=== PATIENT | male | born 1995 | race Caucasian/White ===

== ENCOUNTER 2016-11-27 08:02 | Emergency (ER) | payer SELFPAY ==
[2016-11-27 08:09] VITALS: BP 137/87
[2016-11-27] MEDS ORDERED: IBUPROFEN 800 MG TABLET PO ONE (08:11)
--- NOTE | 2016-11-27 08:13 | ER Document Report ---
ED Medical Screen (RME) - General Chief Complaint: Knee Injury Stated Complaint: LEFT KNEE INJURY Time seen by provider: 08:10 Mode of Arrival: Wheelchair Information source: Patient Notes: 21 yo male presents to ed for injury to left knee when fell of off a long board and hit the concrete with his knee. TRAVEL OUTSIDE OF THE [place] IN LAST 30 DAYS: No - HPI Onset: Yesterday Onset/Duration: Sudden Quality of pain: Sharp, Throbbing Severity: Severe Pain Level: 5 - Related Data Allergies/Adverse Reactions: gabapentin [From Neurontin] Allergy (Verified 11/27/16 08:06) Past Medical History Pulmonary Medical History: Denies: Hx Asthma Neurological Medical History: Denies: Hx Migraine Endocrine Medical History: Denies: Hx Diabetes Mellitus Type 1, Hx Diabetes Mellitus Type 2 Renal/ Medical History: Denies: Hx Peritoneal Dialysis Psychiatric Medical History: Denies: Hx Attention Deficit Hyperactivity Disorder - Immunizations Hx Diphtheria, Pertussis, Tetanus Vaccination: Yes Physical Exam - Vital signs Vitals: Temp Pulse Resp BP Pulse Ox 98.6 F 105 H 20 137/87 H 100 11/27/16 08:07 11/27/16 08:07 11/27/16 08:07 11/27/16 08:07 11/27/16 08:07 Course - Vital Signs Vital signs: Temp Pulse Resp BP Pulse Ox 98.6 F 105 H 20 137/87 H 100 11/27/16 08:07 11/27/16 08:07 11/27/16 08:07 11/27/16 08:07 11/27/16 08:07
[2016-11-27] MEDS ORDERED: OXYCODONE-ACETAMINOPHEN 5-325 MG TABLET PO ONE (09:16)
[2016-11-27] MEDS ORDERED: DIPH/PERTUSS(ACELL)/TETANUS VAC/PF 0.5 ML SYR (>=10YO) IM ONE (09:16)
--- NOTE | 2016-11-27 09:21 | ER Document Report ---
ED Extremity Problem, Lower - General Chief Complaint: Knee Injury Stated Complaint: LEFT KNEE INJURY Time seen by provider: 09:18 Mode of Arrival: Wheelchair Information source: Patient TRAVEL OUTSIDE OF THE [place] IN LAST 30 DAYS: No - HPI Patient complains to provider of: Injury, Pain Location: Knee Occurred: Yesterday Where: Outdoors Onset/Duration: Sudden Quality of pain: Achy Severity: Moderate Pain Level: 3 Context: Fell Recent injury: Yes Associated symptoms: Painful ambulation Exacerbated by: Movement Relieved by: Nothing Notes: Patient is a 21-year-old male who presents to the emergency room complaining of injury to his left knee that occurred yesterday evening, states he was riding a long board when he fell off of it onto pavement, causing a deep abrasion over his knee, patient states it is painful to walk on today, last tetanus shot is unknown - Related Data Allergies/Adverse Reactions: gabapentin [From Neurontin] Allergy (Verified 11/27/16 08:06) Past Medical History - General Information source: Patient - Social History Smoking Status: Current Every Day Smoker Chew tobacco use (# tins/day): No Frequency of alcohol use: None Drug Abuse: None Family History: Reviewed & Not Pertinent Patient has suicidal ideation: No Patient has homicidal ideation: No Pulmonary Medical History: Denies: Hx Asthma Neurological Medical History: Denies: Hx Migraine Endocrine Medical History: Denies: Hx Diabetes Mellitus Type 1, Hx Diabetes Mellitus Type 2 Renal/ Medical History: Denies: Hx Peritoneal Dialysis Psychiatric Medical History: Denies: Hx Attention Deficit Hyperactivity Disorder Surgical Hx: Negative - Immunizations Hx Diphtheria, Pertussis, Tetanus Vaccination: Yes Review of Systems - Review of Systems Constitutional: No symptoms reported EENT: No symptoms reported Cardiovascular: No symptoms reported Respiratory: No symptoms reported Gastrointestinal: No symptoms reported Genitourinary: No symptoms reported Male Genitourinary: No symptoms reported Musculoskeletal: See HPI Skin: See HPI Hematologic/Lymphatic: No symptoms reported Neurological/Psychological: No symptoms reported -: Yes All other systems reviewed and negative Physical Exam - Vital signs Vitals: Temp Pulse Resp BP Pulse Ox 98.6 F 105 H 20 137/87 H 100 11/27/16 08:07 11/27/16 08:07 11/27/16 08:07 11/27/16 08:07 11/27/16 08:07 - General Notes: - General General appearance: Appears well, Alert In distress: None - HEENT Head: Normocephalic, Atraumatic Eyes: Normal Conjunctiva: Normal Extraocular movements intact: Yes Eyelashes: Normal Pupils: PERRL - Respiratory Respiratory status: No respiratory distress - Cardiovascular Rhythm: Regular - Abdominal Inspection: Normal - Back Back: Normal - Extremities General upper extremity: Normal inspection General lower extremity: Left lower extremity, and knee with 3 cm deep abrasion , with surrounding superficial abrasions, mild erythema and tenderness, painful range of motion as well as palpation, distal sensation and motor is intact - Neurological Neuro grossly intact: Yes Orientation: AAOx4 Joycelyn Coma Scale Eye Opening: Spontaneous Joycelyn Coma Scale Verbal: Oriented [place] Coma Scale Motor: Obeys Commands [place] Coma Scale Total: 15 - Psychological Associated symptoms: Normal affect, Normal mood - Skin Skin Temperature: Warm Skin Moisture: Dry Skin Color: Normal Course - Re-evaluation Re-evalutation: 11/27/16 09:19 Imaging findings discussed with patient which are unremarkable, wound care was provided as well as pain medication, crutches and instructions for follow-up, patient advised to return if symptoms worsen, patient acknowledges understanding and agreement with this plan - Vital Signs Vital signs: Temp Pulse Resp BP Pulse Ox 98.6 F 105 H 20 137/87 H 100 11/27/16 08:07 11/27/16 08:07 11/27/16 08:07 11/27/16 08:07 11/27/16 08:07 - Diagnostic Test Radiology reviewed: Image reviewed, Reports reviewed Discharge - Discharge Clinical Impression: Abrasion of left knee Qualifiers: Encounter type: initial encounter Qualified Code(s): S80.212A - Abrasion, left knee, initial encounter Knee injury Qualifiers: Encounter type: initial encounter Laterality: left Qualified Code(s): S89.92XA - Unspecified injury of left lower leg, initial encounter Condition: Stable Disposition: HOME, SELF-CARE Instructions: Use of Crutches ([facility]), Ice & Elevation ([facility]), Suspected Internal Knee Injury ([facility]), Oral Narcotic Medication ([facility]), Sprained Knee ([facility]) Additional Instructions: Follow up with your primary care provider and an orthopedic surgeon in one to 2 days. Return to the emergency room immediately if symptoms worsen or any additional concerns. Ice and elevate the affected extremity. Limit weightbearing. Cleanse wound twice daily with warm water and soap. Apply antibiotic ointment and clean dressing. Prescriptions: Cephalexin Monohydrate [Keflex 500 mg Capsule] 500 mg PO BID #20 capsule Oxycodone HCl/Acetaminophen [Percocet 5-325 mg Tablet] 1 - 2 tab PO ASDIR PRN # 30 tablet PRN Reason: Forms: Return to Work Referrals: KASSI PERKINS MD [ACTIVE STAFF] - Follow up as needed
== END 2016-11-27 09:40 | disposition home or self-care (01) ==
LOC: ER 08:02
DX: S80.212A Abrasion, left knee, initial encounter (principal); V00.131A Fall from skateboard, initial encounter; Y93.51 Activity, roller skating (inline) and skateboarding; F17.200 Nicotine dependence, unspecified, uncomplicated; Z88.6 Allergy status to analgesic agent
CPT/HCPCS: 90471; 90715; 99283

== ENCOUNTER 2017-12-09 23:41 | Emergency (ER) | payer BC ==
[2017-12-10] MEDS ORDERED: CYCLOBENZAPRINE HCL 10 MG TABLET PO ONE (00:22)
[2017-12-10] MEDS ORDERED: IBUPROFEN 800 MG TABLET PO ONE (00:22)
--- NOTE | 2017-12-10 00:29 | ER Document Report ---
ED Head/Face/Scalp Injury - General Chief Complaint: Head Injury without LOC Stated Complaint: HEAD INJURY Time Seen by Provider: 12/10/17 00:09 Notes: Patient is a 22-year-old male who comes in after hitting his head on the ground while skateboarding yesterday. Patient is also complaining of some right greater than left neck pain but states he also has pain in the middle and he moves his neck. Patient is not taking anything at home for pain or applied ice. Denies medical problems except for a problem with his leg in the past. He is allergic to gabapentin. States that he has had his tonsils out. No other injuries. Thinks that his tetanus is up-to-date. TRAVEL OUTSIDE OF THE [place] IN LAST 30 DAYS: No - HPI Patient complains to provider of: Injury Injury to: Head, Neck Where: Outdoors Context: Fell Loss consciousness: Unsure - Related Data Allergies/Adverse Reactions: gabapentin [From Neurontin] Allergy (Verified 11/27/16 08:06) Past Medical History - General Information source: Patient - Social History Smoking Status: Unknown if Ever Smoked Smoking Education Provided: No Frequency of alcohol use: None Drug Abuse: None Family History: Reviewed & Not Pertinent Patient has suicidal ideation: No Patient has homicidal ideation: No Pulmonary Medical History: Denies: Hx Asthma Neurological Medical History: Denies: Hx Migraine Endocrine Medical History: Denies: Hx Diabetes Mellitus Type 1, Hx Diabetes Mellitus Type 2 Renal/ Medical History: Denies: Hx Peritoneal Dialysis Psychiatric Medical History: Denies: Hx Attention Deficit Hyperactivity Disorder Traumatic Medical History: Reports: Other - leg - Immunizations Hx Diphtheria, Pertussis, Tetanus Vaccination: Yes Review of Systems - Review of Systems Constitutional: No symptoms reported EENT: See HPI Cardiovascular: No symptoms reported Respiratory: No symptoms reported Gastrointestinal: No symptoms reported Genitourinary: No symptoms reported Male Genitourinary: No symptoms reported Musculoskeletal: See HPI Skin: No symptoms reported Hematologic/Lymphatic: No symptoms reported Neurological/Psychological: No symptoms reported Physical Exam - Vital signs Vitals: Temp Pulse Resp BP Pulse Ox 98.7 F 96 18 121/83 99 12/09/17 23:59 12/09/17 23:59 12/09/17 23:59 12/09/17 23:59 12/09/17 23:59 Interpretation: Normal - General General appearance: Appears well, Alert - HEENT Head: Normocephalic, Other - Tenderness to palpation over his right parietal lobe Eyes: Normal Pupils: PERRL Pharynx: Normal Neck: Other - Paraspinal greater than midline cervical tenderness to palpation from C2-C7 - Respiratory Respiratory status: No respiratory distress Chest status: Nontender Breath sounds: Normal Chest palpation: Normal - Cardiovascular Rhythm: Regular Heart sounds: Normal auscultation Murmur: No - Abdominal Inspection: Normal Distension: No distension Bowel sounds: Normal Tenderness: Nontender Organomegaly: No organomegaly - Back Back: Normal, Nontender - Extremities General upper extremity: Normal inspection, Nontender, Normal color, Normal ROM , Normal temperature General lower extremity: Normal inspection, Nontender, Normal color, Normal ROM , Normal temperature, Normal weight bearing. No: Joselo's sign - Neurological Neuro grossly intact: Yes Cognition: Normal Orientation: AAOx4 Joycelyn Coma Scale Eye Opening: Spontaneous [place] Coma Scale Verbal: Oriented [place] Coma Scale Motor: Obeys Commands Joycelyn Coma Scale Total: 15 Speech: Normal Motor strength normal: LUE, RUE, LLE, RLE Sensory: Normal - Psychological Associated symptoms: Normal affect, Normal mood - Skin Skin Temperature: Warm Skin Moisture: Dry Skin Color: Normal Course - Re-evaluation Re-evalutation: 12/10/17 02:32 Patient with cervical strain after hitting his head. No acute findings on CT head or on cervical spine x-ray. Patient will be discharged home with naproxen and Flexeril. He is to ice everything that is sore. Patient is agreeable to this plan. Follow-up with PMD and return if any worsening or concerning symptoms. Stable for discharge. - Vital Signs Vital signs: Temp Pulse Resp BP Pulse Ox 98.1 F 68 16 110/61 98 12/10/17 02:08 12/10/17 02:08 12/10/17 02:08 12/10/17 02:08 12/10/17 02:08 - Diagnostic Test Radiology reviewed: Reports reviewed Discharge - Discharge Clinical Impression: Closed head injury Qualifiers: Encounter type: initial encounter Qualified Code(s): S09.90XA - Unspecified injury of head, initial encounter Cervical strain, acute Qualifiers: Encounter type: sequela Qualified Code(s): S16.1XXS - Strain of muscle, fascia and tendon at neck level, sequela Condition: Stable Disposition: HOME, SELF-CARE Instructions: Head Injury Precautions ([facility]), Ice Packs ([facility]), Neck Injury ( Cervical Strain) ([facility]) Prescriptions: Cyclobenzaprine HCl [Flexeril 10 Mg Tablet] 10 mg PO BIDP PRN #20 tablet PRN Reason: Naproxen [Naprosyn 250 mg Tablet] 250 mg PO DAILY PRN #14 tablet PRN Reason: Forms: Return to Work
--- NOTE | 2017-12-10 01:35 | RADIOLOGY REPORT (SQ) ---
EXAM DESCRIPTION: CT HEAD WITHOUT CLINICAL HISTORY: fall, headache, LOC COMPARISON: None available TECHNIQUE: Axial CT of the head obtained from the skull apex to the skull base without contrast. FINDINGS: No acute intracranial hemorrhage identified. No mass, mass effect, shift of the midline, abnormal extra-axial fluid collection or CT evidence of acute ischemic change identified. The ventricular system is unremarkable. No acute abnormalities of the supratentorial white matter, basal ganglia, cerebellum, or brainstem. The visualized paranasal sinuses and the mastoids are clear. No skull fracture identified. Visualized orbits and globes are unremarkable. DLP:1070.38 mGy-cm IMPRESSION: 1. No acute intracranial abnormality identified. This exam was performed according to our departmental dose-optimization program, which includes automated exposure control, adjustment of the mA and/or kV according to patient size and/or use of iterative reconstruction technique.
--- NOTE | 2017-12-10 01:55 | RADIOLOGY REPORT (SQ) ---
EXAM DESCRIPTION: CERV SP 4 OR 5 VIEWS CLINICAL HISTORY: fall, neck pain COMPARISON: None. FINDINGS: 5 views of the cervical spine. Straightening of the cervical lordosis is likely secondary to patient positioning. Cervical vertebral body height and intervertebral disc height preserved. No subluxation identified. Atlantodental and atlantoaxial intervals are preserved. No cortical step-offs or evidence of fracture. Facets are appropriately aligned. No neural foraminal narrowing. No fracture of the visualized ribs. No apical pneumothorax. IMPRESSION: No acute abnormality of the cervical spine by plain film criteria.
[2017-12-10] MEDS ORDERED: LIDOCAINE 5% (700 MG) TRANSDERMAL ADH..PATCH TP ONE (01:57)
[2017-12-10] MEDS ORDERED: ONDANSETRON ODT 4 MG TAB (6 TAB/ER DISP) PO PRN (01:57)
[2017-12-10 02:10] VITALS: BP 110/61
== END 2017-12-10 02:13 | disposition home or self-care (01) ==
LOC: ER 23:41
DX: S09.90XA Unspecified injury of head, initial encounter (principal); S16.1XXA Strain of muscle, fascia and tendon at neck level, initial encounter; V00.131A Fall from skateboard, initial encounter; Y93.51 Activity, roller skating (inline) and skateboarding
CPT/HCPCS: 70450; 72050; 99284

== ENCOUNTER → 2018-09-29 | Outpatient (CLI) | payer BC ==
--- NOTE | 2018-09-29 14:14 | RADIOLOGY REPORT (SQ) ---
EXAM DESCRIPTION: VENOUS UNILATERAL LOWER COMPLETED DATE/TIME: 09/29/2018 2:05 pm REASON FOR STUDY: RLE PAIN M79.604 PAIN IN RIGHT LEG COMPARISON: None. TECHNIQUE: Dynamic and static jauregui scale and color images acquired of the RIGHT leg venous system. S elected spectral images acquired with additional compression and augmentation maneuvers. The contrala teral common femoral vein and saphenofemoral junction were also imaged. Images stored on PACS. LIMITATIONS: None. FINDINGS: RIGHT COMMON FEMORAL: Normal phasicity, compression and augmentation. No visualized echogenic material on g ray scale. No defects on color images. FEMORAL: Normal compression and augmentation. No visualized echogenic material on jauregui scale. No defe cts on color images. POPLITEAL: Normal compression, augmentation. No visualized echogenic material on jauregui scale. No defec ts on color images. CALF VESSELS: Normal compression, augmentation. No visualized echogenic material on jauregui scale. No de fects on color images. GSV and SSV: Normal compression, augmentation. No visualized echogenic material on jauregui scale. No def ects on color images. ANY DEEP VENOUS INSUFFICIENCY: Not evaluated. ANY EVIDENCE OF POPLITEAL CYST: No. OTHER: No other significant finding. LEFT COMMON FEMORAL VEIN AND SAPHENOFEMORAL JUNCTION: Normal phasicity, compression and augmentation. No visualized echogenic material on jauregui scale. No de fects on color images. IMPRESSION: NO EVIDENCE OF DVT OR SVT IN THE RIGHT LEG. TECHNICAL DOCUMENTATION: JOB ID: [id number] [employer]- All Rights Reserved Reading location - IP/workstation name: [email or web address]
== END ==
LOC: RAD 12:54
PROVIDERS: ATTEND Physician Assistant
DX: M79.604 Pain in right leg (principal)
CPT/HCPCS: 93971

== ENCOUNTER 2020-01-31 08:30 | Emergency (ER) | payer BC ==
[2020-01-31] MEDS ORDERED: KETOROLAC TROMETHAMINE 60 MG/2 ML SDV IM ONE (09:19)
--- NOTE | 2020-01-31 10:04 | RADIOLOGY REPORT (SQ) ---
EXAM DESCRIPTION: ANKLE LEFT COMPLETE IMAGES COMPLETED DATE/TIME: 01/31/2020 9:36 am REASON FOR STUDY: pain COMPARISON: None. NUMBER OF VIEWS: Three views. TECHNIQUE: AP, lateral, and oblique radiographic images acquired of the left ankle. LIMITATIONS: None. FINDINGS: MINERALIZATION: Normal. BONES: No acute fracture or dislocation. No worrisome bone lesions. Incidental note is made a plant ar enthesophytes. JOINTS: No effusions. SOFT TISSUES: No soft tissue swelling. No foreign body. OTHER: No other significant finding. IMPRESSION: No evidence of acute osseous injury. TECHNICAL DOCUMENTATION: JOB ID: [id number] 2010 [employer]- All Rights Reserved Reading location - IP/workstation name: [email or web address]
--- NOTE | 2020-01-31 10:05 | RADIOLOGY REPORT (SQ) ---
EXAM DESCRIPTION: FOOT LEFT COMPLETE IMAGES COMPLETED DATE/TIME: 01/31/2020 9:36 am REASON FOR STUDY: pain COMPARISON: None. NUMBER OF VIEWS: Three views. TECHNIQUE: AP, lateral and oblique radiographic images acquired of the left foot. LIMITATIONS: None. FINDINGS: MINERALIZATION: Normal. BONES: No acute fracture or dislocation. No worrisome bone lesions. JOINTS: No effusions. SOFT TISSUES: No soft tissue swelling. No foreign body. OTHER: No other significant finding. IMPRESSION: No evidence of acute osseous injury. TECHNICAL DOCUMENTATION: JOB ID: [id number] 2010 [employer]- All Rights Reserved Reading location - IP/workstation name: [email or web address]
[2020-01-31] MEDS ORDERED: OXYCODONE-ACETAMINOPHEN 5-325 MG TABLET PO ONE (10:44)
--- NOTE | 2020-01-31 10:58 | ER Document Report ---
Entered by NAYELY CARCAMO SCRIBE 01/31/20 0919 Acting as scribe for:CLAUDE ROBERTSON MD ED Extremity Problem, Lower - General Chief Complaint: Ankle Injury Stated Complaint: ANKLE INJURY Time Seen by Provider: 01/31/20 08:58 Mode of Arrival: Wheelchair Information source: Patient Notes: This 24-year-old male patient presents to the emergency department today with complaints of left ankle pain. Patient states 1 month ago he was in a skateboard accident and he rolled his left ankle. Patient states for about 3 weeks he had a swollen left ankle that was "black-blue and purple". Patient states he never was seen for this ankle pain until today. Patient states 3 weeks ago the discoloration and swelling seemed to go down so he thought that he was okay. Patient states he has been limping on the ankle since injury but last night after getting off of work the pain seems to have increased. Patient states he was unable to sleep at all last night due to pain. Patient states he has been smoking marijuana for pain relief but it did not work last night. TRAVEL OUTSIDE OF THE [place] IN LAST 30 DAYS: No - Related Data Allergies/Adverse Reactions: gabapentin [From Neurontin] Allergy (Verified 11/27/16 08:06) Past Medical History - General Information source: Patient - Social History Smoking Status: Never Smoker Cigarette use (# per day): No Frequency of alcohol use: None Drug Abuse: None Occupation: [employer] Lives with: Family Family History: Reviewed & Not Pertinent - Medical History Medical History: Negative Surgical Hx: Negative - Immunizations Hx Diphtheria, Pertussis, Tetanus Vaccination: Yes Review of Systems - Review of Systems Constitutional: No symptoms reported EENT: No symptoms reported Cardiovascular: No symptoms reported Respiratory: No symptoms reported Gastrointestinal: No symptoms reported Genitourinary: No symptoms reported Male Genitourinary: No symptoms reported Musculoskeletal: See HPI, Joint pain Skin: No symptoms reported Hematologic/Lymphatic: No symptoms reported Neurological/Psychological: No symptoms reported -: Yes All other systems reviewed and negative Physical Exam - Vital signs Vitals: Temp Pulse Resp BP Pulse Ox 98.9 F 76 20 142/78 H 100 01/31/20 08:36 01/31/20 08:36 01/31/20 08:36 01/31/20 08:36 01/31/20 08:36 - Notes Notes: Physical Exam: General: Alert, appears well. HEENT: Normocephalic. Atraumatic. PERRLA. Extraocular movements intact. Oropharynx clear. Neck: Supple. Respiratory: No respiratory distress. Abdominal: Normal Inspection. No distension. Extremities: Left foot and ankle swelling with associated tenderness on palpation. Neurological: Normal cognition. AAOx4. Normal speech. Psychological: Normal affect. Normal Mood. Skin: Warm. Dry. Normal color. Course - Re-evaluation Re-evalutation: 01/31/20 10:48 Patient received an IM injection of ketorolac with some improvement in his pain at this time. Patient still states that he cannot bear weight on his left ankle foot. X-rays does not show any fractures of his ankle or foot. - Vital Signs Vital signs: Temp Pulse Resp BP Pulse Ox 98.9 F 76 20 142/78 H 100 01/31/20 08:36 01/31/20 08:36 01/31/20 08:36 01/31/20 08:36 01/31/20 08:36 - Diagnostic Test Radiology reviewed: Image reviewed, Reports reviewed Radiology results interpreted by me: 01/31/20 10:48 Left foot no acute fracture seen. No osseous abnormality noted. Left ankle no fracture or dislocation noted no osseous abnormality. Discharge - Discharge Clinical Impression: Left ankle sprain, Sprain of left foot Condition: Stable Disposition: HOME, SELF-CARE Instructions: William Wrap ([facility]), Use of Crutches ([facility]), Ankle Stirrup Splint ([facility]), Ice & Elevation ([facility]), Ice Packs ([facility]), Oral Narcotic Medication ([facility]), Soft Ankle Splint ([facility]), Sprain ([facility]), Sprained Ankle ([facility]), Splint Precautions ([facility]) Prescriptions: Ibuprofen [Motrin 800 mg Tablet] 800 mg PO Q8H PRN #30 tab PRN Reason: pain Hydrocodone/Acetaminophen [[place] 5-325 mg Tabs (6 Tab/ER Disp)] 1 tab PO BID PRN 3 Days #6 tab PRN Reason: For Pain Forms: Return to Work I personally performed the services described in the documentation, reviewed and edited the documentation which was dictated to the scribe in my presence, and it accurately records my words and actions.
[2020-01-31 11:26] VITALS: BP 142/75
== END 2020-01-31 11:26 | disposition home or self-care (01) ==
LOC: ER 08:30
DX: S93.402A Sprain of unspecified ligament of left ankle, initial encounter (principal); S93.602A Unspecified sprain of left foot, initial encounter; M25.572 Pain in left ankle and joints of left foot; M79.89 Other specified soft tissue disorders; F12.10 Cannabis abuse, uncomplicated; V00.131A Fall from skateboard, initial encounter
CPT/HCPCS: 99283; 96372; 73610; 73630; J1885